=== PATIENT | female | born 1995 | race Two or more races ===

== ENCOUNTER 2024-06-26 13:55 | Emergency (ER) | payer OTHER ==
[~2024-06-26] VITALS: Ht 160 cm; Wt 73.9 kg
== END 2024-06-26 21:42 | disposition home or self-care (01) ==
LOC: ER 14:34
DX: S00.93XA Contusion of unspecified part of head, initial encounter (principal); X58.XXXA Exposure to other specified factors, initial encounter; Y93.89 Activity, other specified; Y92.89 Other specified places as the place of occurrence of the external cause; Y99.9 Unspecified external cause status